=== PATIENT | male | born 1970 | race American Indian/Alaskan Native ===

== ENCOUNTER 2021-12-05 01:49 | Emergency (ER) | payer MEDICAID ==
--- NOTE | 2021-12-05 02:42 | Emergency Department Report ---
ED Psych HPI - General Chief Complaint: Psych Stated Complaint: ETOH Time Seen by Provider: 12/05/21 02:28 Source: patient Mode of arrival: Stretcher - History of Present Illness Initial Comments: Patient is 51 years old male with history of schizophrenia. Patient brought to the emergency room for mental health evaluation. Patient stated that he is having some suicidal thoughts. Patient stated that people are trying to kill him so he wanted to kill himself before they kill him. He denied any auditory or visual hallucination. No homicidal ideation. Patient also admitted that he has been drinking alcohol last night. MD Complaint: suicidal ideation -: days(s) Associated Symptoms: denies other symptoms If Self Harm: admits thoughts of - Related Data Home Medications Medication Instructions Recorded Confirmed Last Taken ARIPiprazole 10 mg PO DAILY 12/05/21 12/05/21 Unknown Mirtazapine 30 mg PO HS 12/05/21 12/05/21 Unknown Sertraline 25 mg PO DAILY 12/05/21 12/05/21 Unknown buPROPion 300 mg PO DAILY 12/05/21 12/05/21 Unknown Previous Rx's Medication Instructions Recorded Last Taken Type ARIPiprazole 10 mg PO QDAY 30 Days #30 tablet 12/05/21 Unknown Rx Bupropion HCl [Wellbutrin XL] 300 mg PO QAM 30 Days #30 12/05/21 Unknown Rx Mirtazapine [Remeron] 30 mg PO QHS 30 Days #30 12/05/21 Unknown Rx Sertraline [Zoloft] 25 mg PO QDAY 30 Days #30 tab 12/05/21 Unknown Rx Allergies Allergy/AdvReac Type Severity Reaction Status Date / Time No Known Allergies Allergy Verified 04/26/13 00:25 ED Review of Systems ROS: Stated complaint: ETOH Other details as noted in HPI Comment: All other systems reviewed and negative Constitutional: denies: chills, fever Respiratory: denies: cough, shortness of breath, SOB with exertion, SOB at rest Cardiovascular: denies: chest pain, palpitations Gastrointestinal: denies: abdominal pain, nausea, vomiting, diarrhea, constipation, hematemesis, melena, hematochezia Musculoskeletal: denies: back pain Neurological: denies: headache, weakness, numbness, paresthesias, confusion Psychiatric: suicidal thoughts. denies: auditory hallucinations, visual hallucinations, homicidal thoughts ED Past Medical Hx - Past Medical History Previous Medical History?: Yes Hx Psychiatric Treatment: Yes (Schizophrenia, [facility]) Additional medical history: Bipolar, paranoid schz. - Surgical History Past Surgical History?: No - Social History Smoking Status: Current Every Day Smoker Substance Use Type: Alcohol, Marijuana - Medications Home Medications: Home Medications Medication Instructions Recorded Confirmed Last Taken Type ARIPiprazole 10 mg PO DAILY 12/05/21 12/05/21 Unknown History ARIPiprazole 10 mg PO QDAY 30 Days #30 tablet 12/05/21 Unknown Rx Bupropion HCl [Wellbutrin XL] 300 mg PO QAM 30 Days #30 12/05/21 Unknown Rx Mirtazapine 30 mg PO HS 12/05/21 12/05/21 Unknown History Mirtazapine [Remeron] 30 mg PO QHS 30 Days #30 12/05/21 Unknown Rx Sertraline 25 mg PO DAILY 12/05/21 12/05/21 Unknown History Sertraline [Zoloft] 25 mg PO QDAY 30 Days #30 tab 12/05/21 Unknown Rx buPROPion 300 mg PO DAILY 12/05/21 12/05/21 Unknown History ED Physical Exam - General Limitations: No Limitations General appearance: alert, in no apparent distress - Head Head exam: Present: atraumatic, normocephalic, normal inspection - Eye Eye exam: Present: normal appearance - ENT ENT exam: Present: normal exam, normal orophraynx, mucous membranes moist - Neck Neck exam: Present: normal inspection, full ROM. Absent: tenderness, meningismus - Respiratory Respiratory exam: Present: normal lung sounds bilaterally - Cardiovascular Cardiovascular Exam: Present: regular rate, normal rhythm, normal heart sounds - GI/Abdominal GI/Abdominal exam: Present: soft, normal bowel sounds. Absent: distended, tenderness, guarding, rebound, rigid, organomegaly, mass, bruit, pulsatile mass, hernia - Extremities Exam Extremities exam: Present: normal inspection, full ROM, normal capillary refill. Absent: tenderness - Back Exam Back exam: Present: normal inspection, full ROM. Absent: CVA tenderness (R), CVA tenderness (L) - Neurological Exam Neurological exam: Present: alert, oriented X3, CN II-XII intact, normal gait, reflexes normal. Absent: motor sensory deficit - Psychiatric Psychiatric exam: Present: flat affect, suicidal ideation. Absent: homicidal ideation - Skin Skin exam: Present: warm, intact, normal color ED Course Vital Signs 12/05/21 12/05/21 12/05/21 02:18 02:25 07:48 Temperature 98 F 98.4 F Pulse Rate 107 H 60 Respiratory 18 18 Rate Blood Pressure 148/87 Blood Pressure 116/74 [Right] O2 Sat by Pulse 97 100 98 Oximetry 12/05/21 14:12 Temperature 98.4 F Pulse Rate 60 Respiratory 18 Rate Blood Pressure Blood Pressure 118/78 [Right] O2 Sat by Pulse 99 Oximetry ED Medical Decision Making - Lab Data Result diagrams: 12/05/21 02:36 12/05/21 02:36 Critical care attestation.: If time is entered above; I have spent that time in minutes in the direct care of this critically ill patient, excluding procedure time. ED Disposition Clinical Impression: Schizophrenia, chronic with acute exacerbation Disposition: 01 HOME / SELF CARE / HOMELESS Is pt being admited?: No Condition: Stable Instructions: Schizophrenia Prescriptions: Mirtazapine [Remeron] 30 mg PO QHS 30 Days #30 ARIPiprazole 10 mg PO QDAY 30 Days #30 tablet Bupropion HCl [Wellbutrin XL] 300 mg PO QAM 30 Days #30 Sertraline [Zoloft] 25 mg PO QDAY 30 Days #30 tab Referrals: FENG MIR MD [Primary Care Provider] - 3-5 Days
[2021-12-05 02:52] LABS: Basophils % (Auto) 0.4 % (0.0-1.8); Eosinophils % (Auto) 0.4 % (0.0-4.3); Hematocrit 36.2 % (35.5-45.6); Hemoglobin 12.7 gm/dl (11.8-15.2); Lymphocytes # (Auto) 2.7 K/mm3 (1.2-5.4); Lymphocytes % (Auto) 43.4 % (13.4-35.0); Mean Corpuscular HGB Conc 35 % (32-34); Mean Corpuscular Volume 102 fl (84-94); Monocytes # (Auto) 0.6 K/mm3 (0.0-0.8); Monocytes % (Auto) 8.9 % (0.0-7.3); Platelet Count 321 K/mm3 (140-440); Red Blood Count 3.54 M/mm3 (3.65-5.03); Red Cell Distribution Width 14.4 % (13.2-15.2)
[2021-12-05 03:00] LABS: BUN/Creatinine Ratio 13; Blood Urea Nitrogen 10 mg/dL (9-20); Calcium 9.1 mg/dL (8.4-10.2); Hemolysis Index 9
--- NOTE | 2021-12-05 11:29 | Consultation ---
History of Present Illness - Reason for Consult Consult date: 12/05/21 Reason for consult: Mental health evaluation - History of Present Psychiatric Illness HPI: Patient is 51 years old male with history of schizophrenia. Patient brought to the emergency room for mental health evaluation. Patient stated that he is having some suicidal thoughts. Patient stated that people are trying to kill him so he wanted to kill himself before they kill him. He denied any auditory or visual hallucination. No homicidal ideation. Patient also admitted that he has been drinking alcohol last night. The patient is a 51 year old male with history of paranoid schizophrenia and bipolar who presents to the ED for mental health evaluation. The The patient was seen this morning. He is calm, alert and oriented x2. The patient states that "a romina said that somebody was going to kill me so I got paranoid." The patient reports being compliant with psychotropic medications; states he sees Dr. Mcghee at [facility]. The patient is not specific of sucidality, states " just thinking about a lot of stuff." PAST PSYCHIATRIC HISTORY Diagnoses: paranoid schizophrenia, Bipolar Suicide attempts or Self-harm behavior: Denies Prior psychiatric hospitalizations: Yes Substance Abuse history: marijuana, alcohol Previous psychiatric medications tried: Sertraline Outpatient treatment: Unknown PAST MEDICAL HISTORY: None reported Family Psychiatric History: None reported or documented SOCIAL HISTORY Marital Status: Single Living Arrangements: Homeless Employment Status: unemployed Access to guns/weapons: Denies Education: 11th grade History of Abuse: Denies Legal History: Unknown REVIEW OF SYSTEMS Constitutional: Negative for weight loss ENT: Negative for stridor Respiratory: Negative for cough or hemoptysis All other systems reviewed and are negative MENTAL STATUS EXAMINATION General Appearance and Behavior: Age appropriate, good hygiene, wearing appropriate clothes, good eye contact, anxious, cooperative Cooperation: Participating/engaged Psychomotor Behavior: Psychomotor normal Mood:calm Affect and affective range: congruent with stated mood Thought Process: Goal directed Thought Content: Reality oriented Speech: Normal tone and pace Suicidal Ideation:Passive Homicidal Ideation: Denies Hallucinations: Denies Delusions: None Impulse Control: Limited Insight and Judgment: Limited insight and judgment Memory: Limited Attention: attentive Orientation: Alert, oriented Diagnoses: Schizophrenia Disorder Treatment Plan Case Management 1013 Continue home meds PSYCHOTHERAPY: Supportive psychotherapy provided MEDICAL: Per primary team DELIRIUM PRECAUTIONS: Please re-orient patient frequently, keep lights on during the day, and minimize benzodiazepines and opiates as these medications could worsen patient's confusion. 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 Will sign off. Thanks. Thank you for the consult. Case staffed with Dr. Hutton Medications and Allergies Medications and Allergies Allergies Allergy/AdvReac Type Severity Reaction Status Date / Time No Known Allergies Allergy Verified 04/26/13 00:25 Home Medications Medication Instructions Recorded Confirmed Last Taken Type ARIPiprazole 10 mg PO DAILY 12/05/21 12/05/21 Unknown History ARIPiprazole 10 mg PO QDAY 30 Days #30 tablet 12/05/21 Unknown Rx Bupropion HCl [Wellbutrin XL] 300 mg PO QAM 30 Days #30 12/05/21 Unknown Rx Mirtazapine 30 mg PO HS 12/05/21 12/05/21 Unknown History Mirtazapine [Remeron] 30 mg PO QHS 30 Days #30 12/05/21 Unknown Rx Sertraline 25 mg PO DAILY 12/05/21 12/05/21 Unknown History Sertraline [Zoloft] 25 mg PO QDAY 30 Days #30 tab 12/05/21 Unknown Rx buPROPion 300 mg PO DAILY 12/05/21 12/05/21 Unknown History Mental Status Exam - Vital signs Last Vital Signs Temp 98.4 F 12/05/21 07:48 Pulse 60 12/05/21 07:48 Resp 18 12/05/21 07:48 BP 116/74 12/05/21 07:48 Pulse Ox 98 12/05/21 07:48 Results Result Diagrams: 12/05/21 02:36 12/05/21 02:36 Abnormal lab results 12/05/21 12/05/21 12/05/21 Range/Units 02:36 02:36 02:36 RBC (3.65-5.03) M/mm3 MCV (84-94) fl MCH (28-32) pg MCHC (32-34) % Lymph % (Auto) (13.4-35.0) % Baldwin % (Auto) (0.0-7.3) % Carbon Dioxide 20 L (22-30) mmol/L Glucose 70 L (75-100) mg/dL Salicylates < 0.3 L (2.8-20.0) mg/dL Acetaminophen 5.0 L (10.0-30.0) ug/mL Plasma/Serum Alcohol (0-0.07) % 12/05/21 12/05/21 Range/Units 02:36 02:36 RBC 3.54 L (3.65-5.03) M/mm3 MCV 102 H (84-94) fl MCH 36 H (28-32) pg MCHC 35 H (32-34) % Lymph % (Auto) 43.4 H (13.4-35.0) % Baldwin % (Auto) 8.9 H (0.0-7.3) % Carbon Dioxide (22-30) mmol/L Glucose (75-100) mg/dL Salicylates (2.8-20.0) mg/dL Acetaminophen (10.0-30.0) ug/mL Plasma/Serum Alcohol 0.10 H (0-0.07) % All other labs normal.
[2021-12-05 14:13] VITALS: BP 118/78
== END 2021-12-05 14:13 | disposition home or self-care (01) ==
LOC: ED 01:49
DX: F20.9 Schizophrenia, unspecified (principal); F31.9 Bipolar disorder, unspecified; F17.200 Nicotine dependence, unspecified, uncomplicated; Z79.899 Other long term (current) drug therapy
CPT/HCPCS: 36415; 80048; 80320; 85025; 99284; G0480